=== PATIENT | male | born 1970 | race Caucasian/White ===

== ENCOUNTER 2016-08-05 11:49 | Emergency (ER) | payer OTHER | END 2016-08-05 13:02 | disposition home or self-care (01) | LOC: FER 11:49 | DX: S29.011A Strain of muscle and tendon of front wall of thorax, initial encounter (principal); F17.210 Nicotine dependence, cigarettes, uncomplicated; X50.1XXA Overexertion from prolonged static or awkward postures, initial encounter | CPT/HCPCS: 71101; J1885 ==